=== PATIENT | female | born 1955 | race Caucasian/White ===

== ENCOUNTER 2020-02-14 19:19 | Emergency (ER) | payer MEDICARE, SELFPAY ==
[2020-02-14 19:23] VITALS: BP 142/73; PULSE 83; RESP 20; TEMP 36.8; O2SAT 93; BMI 38.9
--- NOTE | 2020-02-14 19:47 | W.ED.FALL ---
HPI - Fall General: Chief Complaint: Fall Stated Complaint: fall Time Seen by Provider: 02/14/20 19:47 Source: patient History of Present Illness: HPI Narrative: 64-year-old female fell yesterday on the concrete and in her house on a wood floor at home. She states that she was trying to wait it out but talk to her Dr. Angle Candelario today who told her to come here to get checked out. She states she lost her balance and she thinks this was because she missed her dialysis appointment Wednesday but she was able to complete her dialysis today. She does not feel like she is off balance now she is just having right hip knee and shoulder pain. She does say that she hit her head and has a headache she took Tylenol more than 4 hours ago. No fever no vomiting no diarrhea. She states she has had some problems with her balance in the past and it is usually related to at dialysis. She has a cane and a walker at home that she can use. Associated symptoms-after fall: Reports headache(s); Denies abdominal pain, chest pain or neck pain Review of Systems General: Reports: 10 or more systems reviewed and unremarkable except in HPI and below Const: Denies: fever or chills Eyes: Denies: change in vision ENMT: Denies: throat pain Card: Denies: chest pain Resp: Denies: shortness of breath GI: Denies: abdominal pain, nausea, vomiting or change in bowel habits : Denies: difficulty urinating Musc: Reports: extremity pain; Denies: neck pain or muscle weakness Skin/Breast: Denies: rash Neuro: Reports: headache Psych: Denies: hopelessness or suicidal ideation Endo: Denies: excessive urination Kaushal/Lymph: Reports: easy bruising and easy bleeding All/Imm: Denies: hives PFS ED PFSH: Social History (Updated 02/14/20 @ 17:36 by Lennie Morley CMA) Smoking and tobacco status: former smoker Alcohol intake: never Physical Exam Const: COMMON NORMALS: no apparent distress, oriented x3, alert and well nourished HENMT: COMMON NORMALS: normocephalic and external nose normal HEAD & SCALP: normocephalic NOSE: external nose normal MOUTH: no trismus Eye: COMMON NORMALS: EOMs intact bilaterally and conjunctivae normal CONJUNCTIVA: Yes conjunctivae normal Neck/C-Spine: COMMON NORMALS: full ROM, no lymphadenopathy and supple CERVICAL SPINE: Yes cervical ROM normal Lymph: LYMPHATIC: no lymphadenopathy noted Resp: COMMON NORMALS: normal respiratory effort, no retractions, no use of accessory muscles and clear to auscultation bilaterally EFFORT & INSPECTION: Yes able to speak in complete sentences AUSCULTATION: clear to auscultation bilaterally Cardio: COMMON NORMALS: regular rate and regular rhythm RATE: regular rate RHYTHM: regular rhythm GI: COMMON NORMALS: normal to inspection, nondistended, normoactive bowel sounds, soft to palpation, non-tender and no masses INSPECTION: Yes normal to inspection AUSCULTATION: Yes normoactive bowel sounds PALPATION: Yes soft, No guarding and No rigid Back/Pelvis: OTHER: Normal range of motion Extremity: GENERAL: Yes normal exam except as noted OTHER: pain with palpation to r knee and hip but full rom. same with r shoulder and elbow. AV graft in place in r upper arm Neuro: COMMON NORMALS: oriented x3 and CN's II-XII intact bilaterally SENSORIUM/ORIENTATION: Yes alert SPEECH: speech normal Psych: COMMON NORMALS: mental status grossly normal Skin: COMMON NORMALS: no rashes or lesions noted GENERAL SKIN EXAM: no rashes or lesions noted Course Vital Signs: Vital signs: Vital Signs Temperature 98.2 F 02/14/20 19:23 Pulse Rate 83 02/14/20 19:23 Respiratory Rate 20 H 02/14/20 19:23 Blood Pressure 142/73 02/14/20 19:23 Pulse Oximetry 93 02/14/20 19:23 MDM - Fall Imaging Data^: CT Head: Radiologist's impression: [address] [place] [address] CT Scan Report Signed Patient: Suri Seals AUnit #: [id number] : 7Acct#:[id number] Age/Sex: 64 / FADM Date: 02/14/20 Loc: ERRoom/Bed: Attending Dr: Ordering Provider/Ordering MD: Lauren Rocha MD Date of Service: 02/14/20 Procedure(s): CT head wo con* [id number] Accession Number(s): [id number] Report Number: [id number] PROCEDURE INFORMATION: Exam: CT Head Without Contrast Exam date and time: 02/14/2020 8:27 PM Age: 64 years old Clinical indication: Injury or trauma; Fall; Additional info: Fall yest with loc, [facility] TECHNIQUE: Imaging protocol: Computed tomography of the head without contrast. Total DLP: 761.53 mGy-cm Radiation optimization: All CT scans at this facility use at least one of these dose optimization techniques: automated exposure control; mA and/or kV adjustment per patient size (includes targeted exams where dose is matched to clinical indication); or iterative reconstruction. COMPARISON: No relevant prior studies available. FINDINGS: Brain: Normal. No hemorrhage. Unremarkable white matter. No mass effect. Ventricles: Normal. No ventriculomegaly. Bones/joints: Unremarkable. No acute fracture. Sinuses: Visualized sinuses are unremarkable. No fluid levels. Mastoid air cells: Visualized mastoid air cells are well aerated. Soft tissues: Unremarkable. CT/CT head wo con* [id number] IMPRESSION: No acute intracranial abnormality. Radiation Dose CTDIVOL = (mGy): DLP = 761.53 (mGy-cm) Dictated By:Aditya Rodriguez Signed By:Aditya RodriguezSignwendy Date/Time:02/14/202056 DD/ 55 Other Imaging: Attestation: I personally reviewed and interpreted this imaging study as follows: My impression: r shoulder, r knee, r hip xrays all revieweed by me. No acute fracture or dislocation Discharge Plan Discharge Patient Disposition: Home, Self-Care Clinical Impression: Fall Qualifiers: Encounter type: initial encounter Qualified Code(s): W19.XXXA - Unspecified fall, initial encounter Extremity pain Qualifiers: Extremity pain location: unspecified extremity Qualified Code(s): M79.609 - Pain in unspecified limb Condition: Stable Prescriptions: No Action (DME) InPen (for Novolog) Insulin Pen See Rx Instructions .ROUTE .MEDSUPPLY Qty: 1 RF: 0 gabapentin 300 mg capsule 300 mg PO DAILY RF: 0 levothyroxine 25 mcg capsule 25 mcg PO DAILY RF: 0 Referrals: SURI ARENAS MD [Family Provider] - Patient Instructions: Contusion, Fall Prevention Activity Restrictions/Additional Instructions: start using your cane and or walker. tylenol if needed for pain- follow dosing instructions on packaging. Coding Level of Care Code ED Books Binder for g Fwd Exam Comprehensive
--- NOTE | 2020-02-14 20:00 | XR_ITS ---
WS: [id number] HIP WITH PELVIS RIGHT TECHNIQUE: 3 views of the right hip with pelvis CLINICAL INFORMATION: fall COMPARISON: None. FINDINGS: Normal anatomic alignment. Osteopenia. Mild degenerative arthritis right hip. Vascular calcification. Pelvic phleboliths. No acute fractures. XR/XR hip RT 2-3V wo/w pel* [id number] IMPRESSION: No acute fractures
--- NOTE | 2020-02-14 20:00 | CTR_ITS ---
PROCEDURE INFORMATION: Exam: CT Head Without Contrast Exam date and time: 02/14/2020 8:27 PM Age: 64 years old Clinical indication: Injury or trauma; Fall; Additional info: Fall yest with loc, [facility] TECHNIQUE: Imaging protocol: Computed tomography of the head without contrast. Total DLP: 761.53 mGy-cm Radiation optimization: All CT scans at this facility use at least one of these dose optimization techniques: automated exposure control; mA and/or kV adjustment per patient size (includes targeted exams where dose is matched to clinical indication); or iterative reconstruction. COMPARISON: No relevant prior studies available. FINDINGS: Brain: Normal. No hemorrhage. Unremarkable white matter. No mass effect. Ventricles: Normal. No ventriculomegaly. Bones/joints: Unremarkable. No acute fracture. Sinuses: Visualized sinuses are unremarkable. No fluid levels. Mastoid air cells: Visualized mastoid air cells are well aerated. Soft tissues: Unremarkable. CT/CT head wo con* [id number] IMPRESSION: No acute intracranial abnormality. Radiation Dose CTDIVOL = (mGy): DLP = 761.53 (mGy-cm)
--- NOTE | 2020-02-14 20:00 | XR_ITS ---
WS: [id number] KNEE RIGHT TECHNIQUE: 3 views of the right knee CLINICAL INFORMATION: fall COMPARISON: None. FINDINGS: Normal anatomic alignment. Mild degenerative arthritis. Vascular calcification. Mild soft tissue ruthie a. No significant effusion. Small bony fragment at the superior pole of the patella likely is identif ied. XR/XR knee RT 3V* [id number] IMPRESSION: Soft tissue edema. No definite fractures.
--- NOTE | 2020-02-14 20:00 | XR_ITS ---
WS: [id number] SHOULDER RIGHT TECHNIQUE: 3 views of the right shoulder CLINICAL INFORMATION: fall COMPARISON: None. FINDINGS: Normal AC joint. Subacromial spurring. Degenerative arthritis the glenohumeral joint. No acute fractu res. Right axillary graft. XR/XR shoulder RT min 2V* [id number] IMPRESSION: Mild degenerative arthritis. No acute fractures
[2020-02-14] MEDS: acetaminophen 325 mg Tablet 650 MG PO (20:08)
[2020-02-14 21:21] VITALS: BP 142/85; PULSE 92; RESP 18; O2SAT 98
== END 2020-02-14 21:21 | disposition home or self-care (01) ==
PROVIDERS: Emergency Provider Emergency Medicine; Family Provider Family Medicine
DX: R51 Headache (principal); M25.561 Pain in right knee; M25.551 Pain in right hip; M25.511 Pain in right shoulder; Z99.2 Dependence on renal dialysis; W19.XXXA Unspecified fall, initial encounter; Z87.891 Personal history of nicotine dependence
CPT/HCPCS: 12345; 70450; 73030; 73502; 73562; 99281; 99283

== ENCOUNTER 2020-02-28 18:33 | Emergency (ER) | payer MEDICARE, SELFPAY ==
--- NOTE | 2020-02-28 18:42 | XR_ITS ---
WS: [id number] SHOULDER RIGHT TECHNIQUE: 3 views of the right shoulder CLINICAL INFORMATION: injury COMPARISON: February 14, 2020 FINDINGS: Normal acromioclavicular joint. Normal glenohumeral joint. Acromion is normal in appearance. Normal g lenoid. No visualized acute fractures. Right axillary stent and surgical clips. XR/XR shoulder RT min 2V* [id number] IMPRESSION: No visualized fractures. If persistent pain this can be further with CT or MRI.
--- NOTE | 2020-02-28 18:59 | W.ED.UPPEXIN ---
HPI - Extremity Injury (Upper) General: Chief Complaint: Extremity Injury, Upper Stated Complaint: R SHOULDER INJURY Time Seen by Provider: 02/28/20 18:53 History of Present Illness: HPI narrative: Suri is a nice 64-year-old female who comes in complaining of right shoulder pain after a fall. She fell 3 days ago but the pain has persisted. She was at home in her closet when she fell injuring her right shoulder. She complains of pain primarily to the upper posterior portion of her shoulder. She is able to move her arm with some discomfort. She denies any distal numbness or weakness. She denies injury to her head or neck. The patient does have a dialysis graft in that arm but she has had dialysis since the injury and her graft is working well it was evaluated by her electrical project manager. Review of Systems General: Reports: 10 or more systems reviewed and unremarkable except in HPI and below PFS ED PFSH: Medical History (Updated 02/28/20 @ 19:23 by Azalia Min) Diabetes 1.5, managed as type 2 End stage renal disease on dialysis Hypothyroidism Renal dialysis device, implant, or graft complication Social History Smoking and tobacco status: former smoker Alcohol intake: never Physical Exam Const: COMMON NORMALS: no apparent distress, oriented x3, no limitations, healthy appearing and well nourished EXAM LIMITATIONS: no altered mental status GENERAL APPEARANCE: cooperative, well kempt and well developed ORIENTATION/CONSCIOUSNESS: Yes awake HENMT: COMMON NORMALS: normocephalic, head/scalp atraumatic, hearing grossly normal bilaterally, external ears normal, EAC's normal, external nose normal and moist oral mucous membranes HEAD & SCALP: normal to inspection, normocephalic and atraumatic FACE & SINUS: normal facial exam and face symmetric NOSE: external nose normal and nares normal EXTERNAL EAR: Yes external ears normal EXTERNAL AUDITORY CANAL: EAC's normal MOUTH: oral and palatal mucosa normal and tongue normal Eye: COMMON NORMALS: PERRL, EOMs intact bilaterally, conjunctivae normal and no scleral icterus GENERAL EYE: normal appearance of both eyes and normal light reflex CONJUNCTIVA: Yes conjunctivae normal SCLERA: sclerae normal CORNEA: Yes corneas normal PUPIL: Yes PERRL DIRECT OPHTHALMOSCOPY: Yes normal light reflex Neck/C-Spine: COMMON NORMALS: full ROM, no lymphadenopathy, supple, no meningeal signs and no JVD GENERAL: Yes normal visual inspection and Yes trachea midline CERVICAL SPINE: Yes cervical ROM normal Chest: COMMONS NORMALS: inspection of chest normal and palpation of chest normal Resp: COMMON NORMALS: normal respiratory effort, no retractions, no use of accessory muscles and clear to auscultation bilaterally EFFORT & INSPECTION: Yes able to speak in complete sentences AUSCULTATION: clear to auscultation bilaterally Cardio: COMMON NORMALS: no JVD, regular rate, regular rhythm, S1 normal heart sound, S2 normal heart sound, no gallops, no clicks, no murmurs and no rub JUGULAR VENOUS DISTENTION: no JVD RATE: regular rate RHYTHM: regular rhythm HEART SOUNDS: S1 normal and S2 normal GI: COMMON NORMALS: soft to palpation, non-tender, no hepatosplenomegaly and no masses INSPECTION: Yes normal to inspection PALPATION: Yes soft and Yes no hepatosplenomegaly : COMMON NORMALS: Yes no CVA tenderness BLADDER/KIDNEY EXAM: Yes no CVA tenderness Back/Pelvis: COMMON NORMALS: no CVA tenderness, thoracic and lumbar spine normal to inspection, no thoracic nor lumbar tenderness and thoraco-lumbar ROM normal Extremity: COMMON NORMALS: normal to inspection, full ROM, normal capillary refill, no joint enlargement, no clubbing, cyanosis or edema and no calf tenderness Neuro: COMMON NORMALS: oriented x3, CN's II-XII intact bilaterally, moves all extremities, no focal motor deficits and no sensory deficits noted MENINGEAL SIGNS: Yes no meningeal signs Psych: COMMON NORMALS: mental status grossly normal, thought process normal, cooperative, affect normal, speech normal and activity/motor behavior normal APPEARANCE: Yes well kempt SPEECH: Yes normal speech THOUGHT PROCESS: normal thought process Skin: COMMON NORMALS: no rashes or lesions noted, skin turgor normal, no jaundice, no petechiae and no mottling GENERAL SKIN EXAM: no rashes or lesions noted and turgor normal Course Vital Signs: Vital signs: Vital Signs Temperature 98.0 F 02/28/20 19:00 Pulse Rate 70 02/28/20 19:10 Respiratory Rate 18 02/28/20 19:00 Blood Pressure 121/73 02/28/20 19:00 Pulse Oximetry 100 02/28/20 19:00 MDM - Extremity Injury (Upper) MDM Narrative: Medical decision making narrative: The patient had her dialysis graft evaluated after she fell and there was found to have no problems. She did not hit her head or neck and she is not on anticoagulation. The patient's shoulder looks okay to me by x-ray there is no evidence of fracture or dislocation. She is going to try a sling for the next 1 to 2 days but then follow-up with Dr. Davey if her pain persists and I did discuss with her at length not to use the sling for more than 1 to 2 days. She understands risks of adhesive capsulitis. Imaging Data^: Right shoulder: My impression: No acute fractures or dislocations. Osteoarthritis present. Discharge Plan Discharge Patient Disposition: Home, Self-Care Clinical Impression: Contusion of right shoulder Qualifiers: Encounter type: initial encounter Qualified Code(s): S40.011A - Contusion of right shoulder, initial encounter Condition: Stable Prescriptions: [place] 5-325 mg tablet 1 tab PO Q6H PRN (Reason: pain) 5 Days Qty: 20 RF: 0 No Action (DME) InPen (for Novolog or Fiasp) Insulin Pen See Rx Instructions .ROUTE .MEDSUPPLY Qty: 1 RF: 0 gabapentin 300 mg capsule 300 mg PO DAILY RF: 0 levothyroxine 25 mcg capsule 25 mcg PO DAILY RF: 0 Discharge Orders: Discharge Order (Routine); Ordered 02/28/20 Ordered By: Azalia Min Referrals: Florentino Davey MD [Physician] - 7-10 days SURI ARENAS MD [Family Provider] - Discharge Diet: Advance as tolerated Discharge Activity: Increase activity as tolerated Patient Instructions: Rotator Cuff Injury (ED), Shoulder Sprain (ED) Activity Restrictions/Additional Instructions: Please return to the ER immediately for any of the signs or symptoms listed on your discharge instruction sheets, worsening/changing of your symptoms, you are not getting better as quickly as expected, or for ANY other cause or concerns. Do not use your sling for more than 1 to 2 days. Take the [place] only as needed. If your pain continues beyond the next 3 to 5 days follow-up with Dr. Davey for further evaluation and care. Coding Level of Care Code ED Rim Turning Machine Operator for Tristag Fwd Exam Comprehensive
[2020-02-28 19:00] VITALS: BP 121/73; PULSE 69; RESP 18; TEMP 36.7; O2SAT 100; BMI 37.9
[2020-02-28 19:10] VITALS: PULSE 70
[2020-02-28] MEDS: HYDROcodone-acetaminophen 5-325 mg Tablet 1 TAB PO (19:23)
[2020-02-28 19:38] VITALS: BP 121/73; PULSE 70; RESP 18; O2SAT 100
--- NOTE | 2020-02-28 19:45 | PC.NURSE ---
RN reviewed and agrees with assessment
--- NOTE | 2020-03-01 11:14 | DCPLANNER ---
assistant quality manager had message to schedule a follow up appointment for patient with ortho. assistant quality manager called the ortho clinic, spoke with Cristal, pillowcase maker gave clinic patients information. assistant quality manager was told that patients information would be printed and reviewed. Clinic will call pillowcase maker and shipping manager with appointment information.
--- NOTE | 2020-03-07 12:19 | DCPLANNER ---
entertainment manager called the ortho clinic about follow up appointment. entertainment manager spoke with Pat, was told that patient did not want to follow up with ortho at this time, wants to follow up with primary care physician.
== END 2020-02-28 19:46 | disposition home or self-care (01) ==
PROVIDERS: Emergency Provider Emergency Medicine; Family Provider Family Medicine
DX: S40.011A Contusion of right shoulder, initial encounter (principal); W19.XXXA Unspecified fall, initial encounter; E13.22 Other specified diabetes mellitus with diabetic chronic kidney disease; N18.6 End stage renal disease; Z99.2 Dependence on renal dialysis; Z87.891 Personal history of nicotine dependence; Z79.4 Long term (current) use of insulin
CPT/HCPCS: 12345; 73030; 99281; 99283

== ENCOUNTER → 2020-06-24 11:07 | Outpatient (BNVA) | payer MEDICARE, SELFPAY | PROVIDERS: Family Provider Family Medicine; Visit Provider Nurse Practitioner Family | DX: S99.922A Unspecified injury of left foot, initial encounter (principal); R29.6 Repeated falls; X58.XXXA Exposure to other specified factors, initial encounter | CPT/HCPCS: 73610; 73630 ==

== ENCOUNTER 2020-07-16 13:27 | Outpatient (RCR) | payer MEDICARE, SELFPAY | END 2020-08-07 23:59 | disposition home or self-care (01) | LOC: MPT 13:27 | PROVIDERS: Referring Provider Nurse Practitioner Family; Visit Provider Nurse Practitioner Family | DX: R29.6 Repeated falls (principal) | CPT/HCPCS: 97110; 97140; 97162 ==

== ENCOUNTER → 2020-08-07 14:16 | Outpatient (BNVA) | payer MEDICARE, SELFPAY | PROVIDERS: Referring Provider Family Medicine; Visit Provider Family Medicine | DX: J02.9 Acute pharyngitis, unspecified (principal); B97.89 Other viral agents as the cause of diseases classified elsewhere; Z11.59 Encounter for screening for other viral diseases; J98.8 Other specified respiratory disorders | CPT/HCPCS: 87400; 87635 ==